=== PATIENT | female | born 1990 | race Caucasian/White ===

== ENCOUNTER 2020-01-14 08:33 | Inpatient (IN) | payer BC ==
[2020-01-14] MEDS ORDERED: Lactated Ringers 1000 ML Bag* 1,000 ML IV ONE ×2 (09:24→10:56)
[2020-01-14] MEDS ORDERED: Buffered Lidocaine 1% SYRIN* 1 ML/SYRINGE INTRADERM ONE (09:24)
--- NOTE | 2020-01-14 09:36 | HP ---
General Information - Reason for Visit Leaking fluid since approx 0330, ctx increasing in frequency and intensity. - General Information Maternal Age: 29 Grav: 2 Para: 0 SAB: 0 IEA: 1 Estimated Due Date: 01/10/20 Determined By: Early Ultrasound Maternal Blood Type and Rh: A Positive - Results this Serology/RPR Result: Non-Reactive Rubella Result: Non-Immune HBsAg Result: Negative HIV Result: Negative GBS Culture Result: Negative Past Medical History Delivery History: See Records - No previous deliveries Pertinent Past Medical History: See Records Past Medical History Comment: Hx opioid dependence, on buprenorphine Depression/anxiety eczema Pertinent Past Surgical History: See Records Past Surgical History Comment: Breast biopsy 2006 Pertinent Family History: See Records Family History Comment: Bone cancer osteoporosis brain cancer stroke - Antepartal Records Antepartal Records: Reviewed, Complicated by: - Opioid dependence history; on buprenorphine; rubella non-immune; partner HSV2 positive; ASCUS Pap Review of Systems Constitutional: Uncomfortable CV Complaint: No Respiratory: Shortness of Breath: No Gastrointestinal: Normal Bowel Movement, Nausea Genitourinary: Bleeding, Leaking Fluid, No Dysuria Musculoskeletal: Contractions Neurological: No Headache, No Visual Changes Movement: Normal Exam Allergies/Adverse Reactions: Allergies No Known Allergies Allergy (Verified 10/31/19 17:24) BP 134/69 T 98.3 HR 57 RR 18 O2 100 Lab Values - Entire Visit: Laboratory Tests 01/14/20 09:03 Vag Amniotic Fld Detect Positive - Measurements Height: 5 ft 7 in Weight: 173 lb Body Mass Index (BMI): 27.1 Pre- Weight: 145 lb - Exam Breast: Breast Exam Deferred CVA: No CVA Tenderness Extremities: No Edema Heart: Normal Rhythm/Heart Sounds HEENT: No Significant Findings Lungs: Clear Bilaterally Rectal: Rectal Exam Deferred Reflexes: DTR 2+, - - no clonus Thyroid: - - WNL @ entry to care - Abdominal Exam Abdomen Exam: Non-Tender, Fundal Height Consistent with Dates - Ultrasound/Biophysical Profile Ultrasound Status: Not Done Targeted Exam Findings Estimated Weight: 7.5lb Cervical Exam: 2cm Effacement: 100% Station: 0 Presenting Part: Vertex Membrane Status: Leaking Amniotic Fluid Evaluation: Positive ROM Plus, Meconium Bleeding/Discharge: Bloody Show EFM Findings - External Monitor Findings Baseline Heart Rate: 130 External Monitor Findings: Accelerations Present, No Pattern of Variable or Late Decelerations, Variability Moderate Contractions: Regular, Moderate, 45-90 Seconds Contraction Frequency: q 2-4 min Assessment/Plan - Assessment IUP @ 40+0 weeks gestation in early labor. Ruptured membranes, meconium. Doubt acidemia - Plan Plan: Admit - Anticipate Vaginal Delivery Plan Comment: Admit to L&D. Patient will desire epidural, for now will try tub. Initiate IV access. Anticipate SVB. - Date/Time of Admission Date of Admission: 01/14/20 Time of Admission: 09:15
[2020-01-14 09:40] LABS: ABS Lymphocytes 1.8 10^3/ul (1.0-4.8); ABS Monocytes 0.7 10^3/ul (0-0.8); ABS Neutrophils 13.6 10^3/ul (1.5-7.7); Hematocrit 41 % (35-47); Hemoglobin 13.9 g/dL (12.0-16.0); Lymphocyte % 10.9 %; Mean Corpuscular HGB Conc 34 g/dL (31-36); Mean Corpuscular Hemoglobin 31 pg (27-31); Mean Corpuscular Volume 91 fL (80-97); Mean Platelet Volume 10.3 fL (7.4-10.4); Platelet Count 235 10^3/uL (150-450); Red Blood Count 4.52 10^6 /uL (3.70-4.87); Red Cell Distribution Width 13 % (10-15); White Blood Count 16.1 10^3/uL (3.5-10.8)
[2020-01-14] MEDS ORDERED: Lactated Ringers 1000 ML Bag* 1,000 ML IV SCH ×3 (10:00→22:00)
[2020-01-14] MEDS ORDERED: OBEPIDURAL* 250 ML EPIDURAL ONE (10:11)
[2020-01-14 10:44] LABS: Urine Benzodiazepine Screen None Detected (None Detect); Urine Opiates Screen None Detected (None Detect)
[2020-01-14] MEDS ORDERED: Phenylephrine 40 MCG/ML SYRINGE IV PUSH PRN (10:56)
[2020-01-14] MEDS ORDERED: Sodium Citrate/Citric Acid* 15 ML UDC PO PRN (10:56)
[2020-01-14] MEDS ORDERED: Famotidine TAB* 20 MG PO PRN (10:56)
[2020-01-14] MEDS ORDERED: EPHEDrine (Pressors)* 50 MG/ML VIAL IV PUSH PRN (10:56)
--- NOTE | 2020-01-14 14:08 | PN ---
Progress Note - Progress Note Date of Service: 01/14/20 Note: S: Feeling well, got a little sleep. No pain. O: 3-4cm/100/0 FHT 130, +accels, no decels, mod nessa UCs q 2-4 min VSS, afebrile A: IUP @ 40+0 weeks gestation in active labor No evidence acidemia Ruptured membranes, meconium staining P: Encourage continued position changes, rest. Will assess with change in comfort vs several hours.
--- NOTE | 2020-01-14 16:26 | PN ---
Progress Note - Progress Note Date of Service: 01/14/20 Note: S: Feeling comfortable, a little hungry O: VE deferred FHT 140, +accels, no decels, mod nessa VSS Ucs q 4-6 min A: IUP @ 40+0 weeks gestation in active labor Decreased contraction frequency Doubt acidemia P: PARQ discussion low-dose pitocin for labor augmentation; patient in agreement.
[2020-01-14] MEDS ORDERED: Oxytocin in LR* 20 UNITS/1,000 ML BAG IVPB SCH ×2 (17:00→22:00)
--- NOTE | 2020-01-14 19:41 | PN ---
Progress Note - Progress Note Date of Service: 01/14/20 Note: S: Patient comfortable O: VE 8-9cm/100/+1 FHT 130, +accels, no decels, mod nessa Pit @ 8 UCs q 2-3 min VSS, afebrile A: IUP @ 40+0 weeks gestation in active labor Ruptured membrane, meconium Doubt acidemia P: Continue position changes in bed. Titrate pitocin. Anticipate SVB.
[2020-01-14] MEDS ORDERED: Glycerin ADULT SUPP PR PRN (21:57)
[2020-01-14] MEDS ORDERED: Witch Hazel PAD* JAR TOPICAL PRN (21:57)
[2020-01-14] MEDS ORDERED: Acetaminophen TAB* 325 MG PO PRN (21:57)
--- NOTE | 2020-01-14 22:12 | PROCNOTE ---
[facility] OB: Delivery Note - Delivery A Date of : 01/14/20 Time of : 21:32 Sex: Male - "Dougie" Score 1 Minute: 9 Score 5 Minutes: 9 Gestational Age in Weeks and Days at Delivery: 40 Weeks and 0 Days Delivery Method: Spontaneous Vaginal Labor: Spontaneous Amniotic Fluid: Meconium Anesthesia/Analgesia: CEI for Labor Delivered By: Fito Ellsworth - Nursery Level of Nursery: Regular/Bedside - Perineum Perineal Injury: 1st Degree - 1 stitch repair Perineal Injury Comment: Left labial, not repaired Perineal Repair: By Delivering Practioner - Events Delivery Events of Note: Pitocin During Labor - Additional Delivery Notes Additional Delivery Notes: Patient admitted in spontaneous labor, received epidural as desired with good relief. Progressed with pitocin augmentation to complete with urge to push. Length of active labor 13'40", pushed 51 minutes. Baby born OA to GEOVANI, shoulders following smoothly with maternal efforts. Baby to maternal abdomen with spontaneous cry, HR >110. Terminal meconium and copious meconium passed on maternal abdomen. Cord doubly clamped and cut by father. Placenta delivered with gentle cord traction @ 2140. Fundus firm to massage and with pitocin infusing. Repair as above. Baby stable and skin to skin.
[2020-01-15] MEDS: Dibucaine 1% 28.35 GM TUBE PR PRN ×2 (00:04→19:47)
[2020-01-15] MEDS: Ibuprofen TAB* 600 MG PO PRN ×3 (00:04→18:22)
[2020-01-15 06:58] LABS: ABS Lymphocytes 2.8 10^3/ul (1.0-4.8); ABS Neutrophils 10.9 10^3/ul (1.5-7.7); Eosinophil % 0.1 %; Hematocrit 36 % (35-47); Hemoglobin 12.2 g/dL (12.0-16.0); Mean Corpuscular HGB Conc 34 g/dL (31-36); Mean Corpuscular Hemoglobin 31 pg (27-31); Mean Corpuscular Volume 91 fL (80-97); Mean Platelet Volume 10.4 fL (7.4-10.4); Platelet Count 180 10^3/uL (150-450); Red Blood Count 3.98 10^6 /uL (3.70-4.87); Red Cell Distribution Width 13 % (10-15); White Blood Count 14.8 10^3/uL (3.5-10.8)
[2020-01-15] MEDS: Docusate CAP* 100 MG PO SCH ×3 (08:50→21:42)
[2020-01-15] MEDS ORDERED: Measles, Mumps,Rubella VACC* 0.5 ML/VIAL SUBCUT ONE (09:00)
[2020-01-15] MEDS ORDERED: Ferrous Gluconate TAB* 324 MG TAB PO SCH (09:00)
[2020-01-15] MEDS ORDERED: Buprenorphine TAB* 2 MG TAB.SL ONE (10:44)
[2020-01-15] MEDS ORDERED: Buprenorphine TAB* 2 MG TAB.SL SL SCH (11:00)
[2020-01-16] MEDS: Ibuprofen TAB* 600 MG PO PRN ×3 (00:29→14:13)
[2020-01-16] MEDS: OBEPIDURAL* 250 ML EPIDURAL SCH ×2 (07:38→07:44)
[2020-01-16 08:19] VITALS: BP 109/54
[2020-01-16] MEDS: Docusate CAP* 100 MG PO SCH ×2 (08:35→14:13)
[2020-01-16] MEDS ORDERED: Buprenorphine TAB* 2 MG TAB.SL ONE (08:54)
[2020-01-16] MEDS ORDERED: Buprenorphine TAB* 2 MG TAB.SL PO SCH (09:00)
== END 2020-01-16 14:40 | disposition home or self-care (01) | DRG 560 ==
LOC: MCHOBOUT 08:33 → MCHOB 09:15
PROVIDERS: ADMIT Midwife; ATTEND Midwife
PROC: 10E0XZZ Delivery of Products of Conception, External Approach (ICD-10-PCS; principal; 2020-01-14)
PROC: 0HQ9XZZ Repair Perineum Skin, External Approach (ICD-10-PCS; 2020-01-14)
DX: O99.344 Other mental disorders complicating childbirth (principal); O99.324 Drug use complicating childbirth; Z37.0 Single live birth; F41.8 Other specified anxiety disorders; F11.21 Opioid dependence, in remission; O77.0 Labor and delivery complicated by meconium in amniotic fluid; O70.0 First degree perineal laceration during delivery; Z3A.40 40 weeks gestation of pregnancy
CPT/HCPCS: 36415; 80307; 84112; 85025; 86850; 86900; 86901; 90707; A9270-GY; G0480